=== PATIENT | female | born 1985 | race Two or more races ===

== ENCOUNTER 2021-07-28 19:38 | Emergency (ER) | payer SELFPAY ==
[~2021-07-28] VITALS: Ht 154.9 cm; Wt 81.8 kg
[2021-07-28 19:43] VITALS: BP 134/100
--- NOTE | 2021-07-28 20:19 | PHYS DOC ---
Past Medical History Past Medical History: Hypertension (RINGPHOEBE DO) Past Surgical History: No Surgical History (PHOEBE RING Priom MARTINO) Smoking Status: Never Smoker Alcohol Use: None Drug Use: None (PHOEBE RING ) General Adult EDM: Chief Complaint: INSECT BITE HPI: HPI: Patient is a 35 year old female who presents with insect bite to the right palm that occurred yesterday. Patient denies seeing the insect bite her. Reports noticing redness and a sting simran yesterday. Denies any difficulty breathing, throat or tongue swelling. (DEJA KENDRICK APRN) Review of Systems: Review of Systems: Constitutional: Denies fever or chills. [] Musculoskeletal: Denies back pain or joint pain. [] Integument: Reports insect bite to the right forearm] Neurologic: Denies headache, focal weakness or sensory changes. [] Psychiatric: Denies depression or anxiety. [] (DEJA KENDRICK APRN) Heart Score: C/O Chest Pain: N/A Risk Factors: Risk Factors: DM, Current or recent (<one month) smoker, HTN, HLP, family history of CAD, obesity. Risk Scores: Score 0 - 3: 2.5% MACE over next 6 weeks - Discharge Home Score 4 - 6: 20.3% MACE over next 6 weeks - Admit for Clinical Observation Score 7 - 10: 72.7% MACE over next 6 weeks - Early Invasive Strategies (DEJA KENDRICK APRN) Physical Exam: PE: Constitutional: Well developed, well nourished, no acute distress, non-toxic appearance. [] Skin: Warm, dry, right palmar thenar just below the MCP joint of the index finger with an area of redness roughly 2 x 2 cm with a sting simran in the middle. There is no warmth to the area, there is no fluctuance. Back: No tenderness, no CVA tenderness. [] Extremities: No tenderness, no cyanosis, no clubbing, ROM intact, no edema. [] Neurologic: Alert and oriented X 3, normal motor function, normal sensory function, no focal deficits noted. [] Psychologic: Affect normal, judgement normal, mood normal. [] (DEJA KENDRICK APRN) EKG: EKG: [] (DEJA KENDRICK APRN) Radiology/Procedures: Radiology/Procedures: [] (GARRETDEJA SHARP JAVAD) Course & Med Decision Making: Course & Med Decision Making Pertinent Labs and Imaging studies reviewed. (See chart for details) This a 35-year-old female patient presenting to the ED today with an insect bite to the right palm that occurred yesterday. The area is swollen and erythematous. Discharged on prednisone, Pepcid and Benadryl, first dose given in the ED. (ODALYSDEJA Leonard Merline FARNSWORTH) Dragon Disclaimer: Dragon Disclaimer: This electronic medical record was generated, in whole or in part, using a voice recognition dictation system. (ODALYSDEJA Leonard Merline FARNSWORTH) Departure Departure Impression: Primary Impression: Insect bite Qualified Codes: S60.561A - Insect bite (nonvenomous) of right hand, initial encounter; W57.XXXA - Bitten or stung by nonvenomous insect and other nonvenomous arthropods, initial encounter Disposition: HOME / SELF CARE / HOMELESS Condition: STABLE Patient Instructions: Insect Bite, [id number] Additional Instructions: You have an insect bite to the right palm, use the prescribed medications as ordered. Follow-up with your own doctor in 1 week Scripts Triamcinolone Acetonide (TRIAMCINOLONE ACETONIDE) 80 Gm Oint...g. 1 SUZETTE TP BID, #80 GM 1 Refill Prov: DEJA KENDRICK JAVAD 07/28/21 Diphenhydramine Hcl (BENADRYL) 25 Mg Capsule 1 CAP PO QHS, #30 CAP 0 Refills Prov: ODALYSDEJA Leonard Merline FARNSWORTH 07/28/21 Famotidine (FAMOTIDINE) 20 Mg Tablet 20 MG PO DAILY, #7 TAB Prov: GARRETARONDEJA Merline FARNSWORTH 07/28/21 Prednisone (PREDNISONE) 50 Mg Tablet 1 TAB PO DAILY, #5 TAB Prov: MIREILLEDEJA Merline FARNSWORTH 07/28/21 Attending Signature Attending Signature I have reviewed the PA/AMUSEMENT RIDE INSPECTOR's note and plan of care. I was available for consultation as needed during the patient's visit in the emergency department. I agree with the clinical impression, plan, and disposition. (PHOEBE RING DO) DEJA KENDRICK APRN July 28, 2021 20:19 PHOEBE RING DO July 28, 2021 22:15
[2021-07-28] MEDS ORDERED: DIPH25CA58 PO (20:28)
[2021-07-28] MEDS ORDERED: PRED50TA PO (20:28)
[2021-07-28] MEDS ORDERED: TRIA80OI TP (20:28)
[2021-07-28] MEDS ORDERED: FAMO20TA5 PO (20:28)
[2021-07-28] MEDS ORDERED: FAMOTIDINE 20 MG TABLET. PO ONE (20:30)
[2021-07-28] MEDS ORDERED: diphenhydrAMINE HCL 25 MG CAPSULE PO ONE (20:30)
[2021-07-28] MEDS ORDERED: predniSONE 20 MG TABLET PO ONE (20:30)
== END 2021-07-28 21:05 | disposition home or self-care (01) ==
LOC: EDSEX 19:38 → ER 19:38
DX: S60.561A Insect bite (nonvenomous) of right hand, initial encounter (principal); I10 Essential (primary) hypertension; W57.XXXA Bitten or stung by nonvenomous insect and other nonvenomous arthropods, initial encounter; Y93.89 Activity, other specified; Y92.89 Other specified places as the place of occurrence of the external cause; Y99.8 Other external cause status
CPT/HCPCS: 99284; J7512; Q0163